=== PATIENT | male | born 1950 | race Caucasian/White ===

== ENCOUNTER 2017-08-19 10:10 | Emergency (ER) | payer MEDICARE ==
[2017-08-19 10:54] LABS: #Basophils 0.1 thou/uL (0.0-0.2); #Eosinphils 0.2 thou/uL (0.0-0.7); #Lymphocytes 2.1 thou/uL (1.20-3.40); #Neutrophils 9.3 thou/uL (1.40-6.50); %Basophils 0.7 % (0.0-1.0); %Eosinophils 1.9 % (0.0-10.0); %Lymphocytes 16.7 % (21.0-51.0); %Monocytes 7.7 % (0.0-10.0); Hematocrit 49.8 % (42.0-52.0); Mean Platelet Volume 7.6 fL (7.4-10.4); Red Blood Cell (RBC) Count 5.16 mill/uL (4.70-6.10); White Blood Cell (WBC) Count 12.7 thou/uL (4.8-10.8)
[2017-08-19 11:07] LABS: Troponin I Less than 0.010 ng/mL (< 0.028)
[2017-08-19 11:09] LABS: ALT (SGPT) 17 U/L (8-55); AST (SGOT) 16 U/L (5-34); Alkaline Phosphatase 110 U/L (40-150); Anion Gap 13 mmol/L (10-20); BUN (Urea Nitrogen) 10 mg/dL (8.4-25.7); Bilirubin, Total 0.5 mg/dL (0.2-1.2); CK (CPK) 86 U/L (30-200); Calc. Creatinine Clearance 0 mL/min (70-130); Calcium 9.4 mg/dL (7.8-10.44); Carbon Dioxide 26 mmol/L (23-31); Chloride 106 mmol/L (98-107); Estimated GFR-MDRD 80; Globulin 3.3 g/dL (2.4-3.5); Lipase 39 U/L (8-78); Protein, Total 7.5 g/dL (5.8-8.1)
--- NOTE | 2017-08-19 11:20 | RAD ---
UPRIGHT PORTABLE CHEST ONE VIEW: History: 66-year-old male with sharp chest pain, awakening the patient up at 6:30. History of cardiac bypass. Comparison: 10-24-10 FINDINGS: Post underlying sternotomy. Left hemidiaphragm elevation. Minimal increased linear and interstitial markings bilaterally having more the appearance of some chronic change. No confluent pneumonia, over t edema or pleural effusion. IMPRESSION: Minimal chronic linear and interstitial changes bilaterally. Mild left hemidiaphragm elevation. No c onfluent pneumonia, overt edema, pleural effusion or other acute process. POS: OFF
--- NOTE | 2017-08-19 12:29 | CT ---
CT CHEST WITH 3D VOLUME RENDERING: Date: 08/19/17 INDICATION: Elevated D-Dimer, chest pain. FINDINGS: There is abnormal reticulonodular density (9.0 mm) of the right lung, predominantly at the right disha g apex. There is patchy and interstitial subpleural opacification bilaterally. There is a round pulm onary nodule at the posterior right lower lobe. No evidence of significant filling defect to indicate pulmonary embolus. There is multifocal hypoattenuation of the hepatic parenchyma, incompletely assessed. IMPRESSION: 1. No evidence of acute pulmonary embolus. 2. Abnormal reticular nodularity of the right upper lobe, as well as pulmonary nodule of the right lower lobe. Recommend pulmonary medicine consultation for further care. POS: NANCY
[2017-08-19] MEDS ORDERED: Acetaminophen/Codeine 30-300mg Tablet ONE (12:44)
[2017-08-19 13:00] LABS: Troponin I Less than 0.010 ng/mL (< 0.028)
== END 2017-08-19 13:26 | disposition home or self-care (01) ==
LOC: SCSER 10:10
DX: J18.9 Pneumonia, unspecified organism (principal); R91.8 Other nonspecific abnormal finding of lung field; I25.10 Atherosclerotic heart disease of native coronary artery without angina pectoris; I25.2 Old myocardial infarction; I10 Essential (primary) hypertension; E78.5 Hyperlipidemia, unspecified; F17.210 Nicotine dependence, cigarettes, uncomplicated; Z79.82 Long term (current) use of aspirin; Z79.899 Other long term (current) drug therapy
CPT/HCPCS: 71010; 71275; 80053; 82550; 82553; 83690; 84484; 85025; 85379; 93005

== ENCOUNTER 2017-09-02 08:35 | Outpatient (CLI) | payer MEDICARE ==
--- NOTE | 2017-09-03 11:03 | PET ---
PET CT EVALUATION: CLINICAL HISTORY: Pulmonary nodule. COMPARISON: Reference made to CT exam from 08/19/2017. RADIOPHARMACEUTICAL: Fluorine-18 FDG 13.76 millicuries IV. FINDINGS: There is appropriate biodistribution of radiotracer activity. With regard to the reticulonodular opacities of the right upper lobe, there is hypermetabolic activi ty confirmed by PET imaging, with an SUV of 2.5. The small, round nodule of the right lower lobe is not well depicted, morphologically, on the basis of this exam, with the nondiagnostic CT portion of the exam, although there is no localizable hypermetabolic activity confirmed, with an SUV of approx imately 1.6. Reticulonodularity of the right upper lobe is present with increased metabolic activity, although th e separate punctate nodules are below threshold for PET resolution, although given the appearance an d distribution, favor satellite nodules, related to the above described hypermetabolic activity of t he more dominant right apical nodule. There is vague activity of the right hilar region, conforming to vasculature, without discrete hyper metabolic activity. No well discerned enlarged lymph nodes of this region are seen, within the limi tations of the exam. No hypermetabolic mass or adenopathy of the abdomen or pelvis. No discrete hypermetabolic osseous l esions. Noncontrast attenuation correction CT reveals evidence of prior sternotomy and CABG. There is a hyp odensity involving the lower pole right kidney. Tiny hypoattenuation is also seen within the left k idney, exophytic in morphology. There is scattered vascular disease. Bilateral fat-containing ingu inal rings are present. There is colonic diverticulosis. Dense prostate calcification is present. IMPRESSION: 1. Hypermetabolic activity of right apical pulmonary nodularity is present, indicative of malignanc y, given the morphologic features combined with the hypermetabolic activity. There are several smal l surrounding satellite nodules, below the threshold for PET resolution. 2. The right lower lobe pulmonary nodule is not hypermetabolic. Continued imaging followup is nece ssary for further evaluation. POS: NANCY
== END 2017-09-02 08:36 | disposition home or self-care (01) ==
LOC: PET 08:35
PROVIDERS: ATTEND Internal Medicine Critical Care Medicine
DX: R91.1 Solitary pulmonary nodule (principal); R91.8 Other nonspecific abnormal finding of lung field
CPT/HCPCS: 78815; A9552

== ENCOUNTER 2017-12-16 10:05 | Outpatient (CLI) | payer MEDICARE, OTHER | END 2017-12-16 10:06 | disposition home or self-care (01) | LOC: BICCT 10:05 | PROVIDERS: ATTEND Internal Medicine Critical Care Medicine | DX: R91.1 Solitary pulmonary nodule (principal) | CPT/HCPCS: 71250 ==

== ENCOUNTER 2018-07-08 12:38 | Outpatient (CLI) | payer MEDICARE, OTHER | END 2018-07-08 12:39 | disposition home or self-care (01) | LOC: BICCT 12:38 | PROVIDERS: ATTEND Internal Medicine Critical Care Medicine | DX: R91.1 Solitary pulmonary nodule (principal) | CPT/HCPCS: 71250 ==

== ENCOUNTER 2019-01-06 10:47 | Outpatient (CLI) | payer MEDICARE, OTHER ==
--- NOTE | 2019-01-06 13:17 | CT ---
CT THORAX WITHOUT CONTRAST: 01/06/2019 HISTORY: Follow up lung nodules. COMPARISON: Studies on 07/08/2018 and 08/19/2017. FINDINGS: The irregular nodular densities within the right upper lobe, with adjacent, much smaller areas of nod ularity within the right lobe are again seen and are overall stable. Exact measurements are difficul t to determine due to slice selection between exams. The surrounding smaller, subcentimeter satellit e nodular densities are again seen and are stable, compared to prior studies in 2018 and 2017. There are stable multiple linear densities also again present within the right upper lobe, with areas of m inimal bronchiectasis also again seen involving the right upper lobe. There is a stable 11 mm pulmonary nodule at the posterolateral right lung base, measuring 11 mm. No additional pulmonary nodule is seen. Again noted is mild subpleural reticulation, predominantly involving the upper lobes. No pleural eff usion is seen. Lack of intravenous contrast limits evaluation of vascular structures, as well as mediastinal structu res. However, no enlarged lymph nodes are seen by CT size criteria. Post surgical changes related to CABG are noted. Vascular calcifications are again seen in the coron vanna arteries and, to a lesser extent, involving the thoracic aorta. Small, hypodense lesions in the left hepatic lobe are again seen and are unchanged in size, with at l east three small hypodensities seen, the largest in the lateral segment, left hepatic lobe, measuring 12 mm, which is unchanged in size. No other interval change. No lytic or sclerotic osseous lesions are appreciated, although there is what appears to be a small bone island in the L1 vertebral body. IMPRESSION: 1. Overall, stable appearance of the chest, with stable irregular, nodular densities within the righ t upper lobe, with multiple adjacent satellite nodules, which are stable in size with stable bronchie ctasis and stable linear interstitial densities. 2. Stable right lower lobe pulmonary nodule. 3. Stable hypodensities within the left hepatic lobe. 4. Prominent vascular calcifications in the coronary arteries. POS: NANCY
== END 2019-01-06 10:48 | disposition home or self-care (01) ==
LOC: BICCT 10:47
PROVIDERS: ATTEND Internal Medicine Critical Care Medicine
DX: R91.8 Other nonspecific abnormal finding of lung field (principal); K76.89 Other specified diseases of liver
CPT/HCPCS: 71250

== ENCOUNTER 2019-07-13 10:03 | Outpatient (CLI) | payer MEDICARE, OTHER ==
--- NOTE | 2019-07-13 11:16 | CT ---
CT Chest WO Con History: R 91.1 pulmonary nodule Comparison: CT chest January 06, 2019 Findings: Moderate background paraseptal and centrilobular emphysema. Scarring and bronchiectasis in the right upper lobe is similar. Right lower lobe nodule is unchanged. No new suspicious pulmonary nodule. No pneumothorax. No effusion. No pericardial effusion. Limited evaluation of the upper abdomen demonstrates multiple hepatic hypode nsities which appear similar. No mediastinal adenopathy. No axillary adenopathy. No thoracic spine compression deformity. Multiple benign foci of sclerosis of the ribs. Impression: 1. Unchanged appearance of the right upper lobe bronchiectasis and scarring. 2. Likely granuloma right lung base which has not increased in size.
== END 2019-07-13 10:04 | disposition home or self-care (01) ==
LOC: BICCT 10:03
PROVIDERS: ATTEND Internal Medicine Critical Care Medicine
DX: R91.1 Solitary pulmonary nodule (principal)
CPT/HCPCS: 71250

== ENCOUNTER 2022-02-09 09:01 | Emergency (ER) | payer MEDICARE, OTHER | END 2022-02-09 11:48 | disposition home or self-care (01) | LOC: ERS 09:01 | DX: K40.90 Unilateral inguinal hernia, without obstruction or gangrene, not specified as recurrent (principal); I10 Essential (primary) hypertension; I25.10 Atherosclerotic heart disease of native coronary artery without angina pectoris; E78.5 Hyperlipidemia, unspecified; F17.210 Nicotine dependence, cigarettes, uncomplicated | CPT/HCPCS: 99283 ==

== ENCOUNTER 2022-02-22 11:05 | Outpatient (CLI) | payer MEDICARE, OTHER ==
[2022-02-22 12:05] LABS: #Basophils 0.1 10x3/uL (0.0-0.2); #Eosinphils 0.3 10x3/uL (0.0-0.5); %Basophils 0.6 % (0.0-2.0); %Eosinophils 2.6 % (0.0-6.0); %Lymphocytes 25.9 % (18.0-47.0); %Monocytes 9.9 % (0.0-10.0); %Neutrophils 60.5 % (40.0-75.0); Hemoglobin 15.4 g/dL (13.5-17.5); Mean Corpuscular HGB CONC 33.2 g/dL (32.0-36.0); Mean Corpuscular Hemoglobin 31.4 pg (27.0-33.0); Mean Corpuscular Volume 94.5 fl (81.2-95.1); Mean Platelet Volume 9.8 fl (7.4-10.4); Platelet Count 258 10x3/uL (150-450); RBC Distribution Width 13.4 % (11.5-14.5); Red Blood Cell (RBC) Count 4.91 10x6/uL (4.32-5.72); White Blood Cell (WBC) Count 9.9 10x3/uL (3.5-10.5)
[2022-02-22 12:50] LABS: Anion Gap 13 mmol/L (10-20); BUN (Urea Nitrogen) 13 mg/dL (8.4-25.7); Calc. Creatinine Clearance 0 mL/min (70-130); Calcium 9.5 mg/dL (7.8-10.44); Carbon Dioxide 27 mmol/L (23-31); Chloride 105 mmol/L (98-107); Glucose 90 mg/dL (83-110); Sodium 140 mmol/L (136-145)
[2022-02-23 16:03] LABS: SARS-CoV-2 PCR by NAA Not Detected (NotDetected)
== END 2022-02-22 11:06 | disposition home or self-care (01) ==
LOC: LABBT 11:05
PROVIDERS: ATTEND Surgery
DX: Z01.818 Encounter for other preprocedural examination (principal); K40.20 Bilateral inguinal hernia, without obstruction or gangrene, not specified as recurrent; Z20.822 Contact with and (suspected) exposure to COVID-19
CPT/HCPCS: 80048; 85025; 93005; U0003; U0005; 93010

== ENCOUNTER 2022-02-27 08:24 | Day surgery (SDC) | payer MEDICARE, OTHER ==
[2022-02-25 10:17] VITALS: BMI 27.2
[2022-02-27] MEDS ORDERED: Dexmedetomidine 200 MCG/2 ML VIAL ONE (08:58)
== END 2022-02-27 10:14 | disposition home or self-care (01) ==
LOC: SDC 08:24
PROVIDERS: ATTEND Surgery
DX: K40.20 Bilateral inguinal hernia, without obstruction or gangrene, not specified as recurrent (principal); K42.9 Umbilical hernia without obstruction or gangrene; I50.9 Heart failure, unspecified; I25.10 Atherosclerotic heart disease of native coronary artery without angina pectoris; I42.9 Cardiomyopathy, unspecified; F17.210 Nicotine dependence, cigarettes, uncomplicated; Z53.09 Procedure and treatment not carried out because of other contraindication; Z79.82 Long term (current) use of aspirin; Z79.899 Other long term (current) drug therapy

== ENCOUNTER 2022-04-22 11:27 | Outpatient (CLI) | payer MEDICARE, OTHER ==
[2022-04-22 13:21] LABS: #Eosinphils 0.1 10x3/uL (0.0-0.5); #Monocytes 0.6 10x3/uL (0.0-1.1); #Neutrophils 5.5 10x3/uL (1.5-8.4); %Basophils 0.4 % (0.0-2.0); %Eosinophils 1.4 % (0.0-6.0); %Lymphocytes 20.3 % (18.0-47.0); %Monocytes 7.6 % (0.0-10.0); %Neutrophils 69.8 % (40.0-75.0); Mean Corpuscular HGB CONC 33.6 g/dL (32.0-36.0); Mean Corpuscular Hemoglobin 31.8 pg (27.0-33.0); Mean Corpuscular Volume 94.7 fl (81.2-95.1); Platelet Count 226 10x3/uL (150-450); RBC Distribution Width 13.5 % (11.5-14.5); Red Blood Cell (RBC) Count 4.72 10x6/uL (4.32-5.72); White Blood Cell (WBC) Count 7.9 10x3/uL (3.5-10.5)
[2022-04-22 13:49] LABS: Anion Gap 16 mmol/L (10-20); BUN (Urea Nitrogen) 9 mg/dL (8.4-25.7); Calc. Creatinine Clearance 0 mL/min (70-130); Calcium 9.7 mg/dL (7.8-10.44); Carbon Dioxide 26 mmol/L (23-31); Chloride 103 mmol/L (98-107); Glucose 92 mg/dL (83-110); Potassium 4.5 mmol/L (3.5-5.1); Sodium 140 mmol/L (136-145)
== END 2022-04-22 11:28 | disposition home or self-care (01) ==
LOC: LABBT 11:27
PROVIDERS: ATTEND Surgery
DX: Z01.812 Encounter for preprocedural laboratory examination (principal); K40.20 Bilateral inguinal hernia, without obstruction or gangrene, not specified as recurrent; K42.9 Umbilical hernia without obstruction or gangrene; Z20.822 Contact with and (suspected) exposure to COVID-19
CPT/HCPCS: 80048; 85025; U0003; U0005

== ENCOUNTER 2022-04-25 09:57 | Day surgery (SDC) | payer MEDICARE, OTHER ==
[2022-04-22 13:11] VITALS: BMI 27.5
[2022-04-25] MEDS ORDERED: fentaNYL Citrate/PF 100 MCG/2 ML SYRINGE ONE (11:22)
[2022-04-25] MEDS ORDERED: SUGAMMADEX SODIUM 200 MG/2 ML VIAL ONE (11:22)
[2022-04-25] MEDS ORDERED: Bupivacaine PF 0.5% 30 ML VIAL ONE (11:24)
[2022-04-25] MEDS ORDERED: Lidocaine 1% w/Epinephrine 1:100K 20 ML VIAL ONE (11:24)
[2022-04-25] MEDS ORDERED: CEFAZOLIN 2 GM VIAL ONE (11:36)
[2022-04-25] MEDS ORDERED: Ondansetron PF 4 MG/2 ML Vial ONE (11:50)
[2022-04-25] MEDS ORDERED: Rocuronium Bromide 10 MG/ML (10ML VIAL) ONE (11:50)
[2022-04-25] MEDS ORDERED: Lidocaine 1% PF 5 ML VIAL ONE (11:50)
[2022-04-25] MEDS ORDERED: Albuterol Sulfate HFA (OR ONLY) ONE (11:50)
[2022-04-25] MEDS ORDERED: Glycopyrrolate 0.2 MG/ML 5 ML SYRINGE ONE (11:50)
[2022-04-25] MEDS ORDERED: PROPOFOL 200 MG/20 ML VIAL ONE (11:50)
[2022-04-25] MEDS ORDERED: Labetalol HCl 100 MG/20 ML VIAL ONE (11:50)
[2022-04-25] MEDS ORDERED: Fentanyl 100 MCG/2 ML VIAL ONE (13:28)
[2022-04-25] MEDS ORDERED: HYDROcodone/Acetaminophen 5/325 mg Tablet ONE (14:32)
[2022-04-25] MEDS ORDERED: Morphine 2 MG/ML VIAL ONE ×2 (14:59→15:49)
[2022-04-25] MEDS ORDERED: Promethazine HCl 25 MG/ML VIAL ONE (15:06)
== END 2022-04-25 17:38 | disposition home or self-care (01) ==
LOC: SDC 09:57
PROVIDERS: ATTEND Surgery
PROC: 0YUA4JZ Supplement Bilateral Inguinal Region with Synthetic Substitute, Percutaneous Endoscopic Approach (ICD-10-PCS; principal; 2022-04-25)
PROC: 8E0W4CZ Robotic Assisted Procedure of Trunk Region, Percutaneous Endoscopic Approach (ICD-10-PCS; 2022-04-25)
PROC: 0WUF0JZ Supplement Abdominal Wall with Synthetic Substitute, Open Approach (ICD-10-PCS; 2022-04-25)
DX: K40.20 Bilateral inguinal hernia, without obstruction or gangrene, not specified as recurrent (principal); K42.9 Umbilical hernia without obstruction or gangrene; Z79.82 Long term (current) use of aspirin; Z79.899 Other long term (current) drug therapy; Z95.1 Presence of aortocoronary bypass graft
CPT/HCPCS: 49585; 49650; C1781 ×2; C1889; J2270; S2900; J0690; J2405; J2550; J2704; J3010; S0020

== ENCOUNTER 2022-04-26 15:13 | Emergency (ER) | payer MEDICARE, OTHER ==
[2022-04-26 17:26] LABS: Bacteria/HPF None Seen HPF (None Seen); Bilirubin Negative (Negative); Blood, Urine Trace (Negative); Clarity Clear (Clear); Glucose, Urine (Dipstick) Normal (Negative); Ketone, Urine Negative (Negative); Leukocyte Negative Leu/uL (Negative); Nitrite Negative (Negative); Protein, Urine (Dipstick) Negative (Neg-Trace); RBC/HPF 0-3 HPF (0-3); Specific Gravity, Urine 1.005 (1.002-1.036); Squamous Epithelial 0-3 HPF (0-3); Urobilinogen Normal mg/dL (Less than 2); WBC/HPF None Seen HPF (0-3)
== END 2022-04-26 18:08 | disposition home or self-care (01) ==
LOC: ERS 15:13
DX: R33.9 Retention of urine, unspecified (principal); I10 Essential (primary) hypertension; E78.5 Hyperlipidemia, unspecified; I25.10 Atherosclerotic heart disease of native coronary artery without angina pectoris; F17.210 Nicotine dependence, cigarettes, uncomplicated; Z46.6 Encounter for fitting and adjustment of urinary device; Z87.19 Personal history of other diseases of the digestive system
CPT/HCPCS: 51702; 81003; 81015; 87086

== ENCOUNTER 2022-05-28 08:09 | Outpatient (CLI) | payer MEDICARE, OTHER | END 2022-05-28 08:10 | disposition home or self-care (01) | LOC: CT 08:09 | PROVIDERS: ATTEND Internal Medicine Critical Care Medicine | DX: R91.8 Other nonspecific abnormal finding of lung field (principal); J44.9 Chronic obstructive pulmonary disease, unspecified; J64 Unspecified pneumoconiosis | CPT/HCPCS: 71250 ==

== ENCOUNTER 2023-05-28 09:02 | Outpatient (CLI) | payer MEDICARE, OTHER | END 2023-05-28 09:03 | disposition home or self-care (01) | LOC: BICCT 09:02 | PROVIDERS: ATTEND Internal Medicine Critical Care Medicine | DX: R91.8 Other nonspecific abnormal finding of lung field (principal); R91.1 Solitary pulmonary nodule; J98.4 Other disorders of lung; S22.31XD Fracture of one rib, right side, subsequent encounter for fracture with routine healing | CPT/HCPCS: 71250 ==

== ENCOUNTER 2025-06-02 07:30 | Outpatient (CLI) | payer MEDICARE, OTHER | END 2025-06-02 07:31 | disposition home or self-care (01) | LOC: BICCT 07:30 | PROVIDERS: ATTEND Internal Medicine Critical Care Medicine | DX: R91.8 Other nonspecific abnormal finding of lung field (principal) | CPT/HCPCS: 71250 ==